=== PATIENT | born 1990 | race Caucasian/White ===

== ENCOUNTER 2018-08-17 08:49 | Outpatient (CLI) | payer OTHER ==
[2018-08-17] MEDS ORDERED: Gadobenate Dimeglumine 529 MG/1 ML (20ML VIAL) ONE (09:00)
--- NOTE | 2018-08-17 11:36 | MRI ---
[facility] Brain W WO Con: MRI IAC with and without contrast 08/17/2018 12:00 AM CLINICAL HISTORY: Dizziness. COMPARISON: None. FINDINGS: Extra axial spaces: Normal in size and morphology for the patient's age. Hemorrhage: None. Ventricular system: Normal in size and morphology for the patient's age. Basal cisterns: Normal. Cerebral parenchyma: Abnormal, small focal white matter signal alteration of the left wallis radiata. Midline shift: None. Cerebellum: Normal. Brainstem: Normal. Paranasal sinuses:Clear Internal auditory canal: No mass effect or pathologic enhancement. No pathologic enhancement or mass along either seventh/8th cranial nerve complex. Asymmetric signal at the right petrous apex could eit her relate to inspissated fluid within pneumatized air cells versus asymmetric marrow signal. Postcontrast imaging: No pathologic intra-axial enhancement. IMPRESSION:Solitary focus of signal alteration of the periventricular region, left wallis radiata. Gi kiera patient's age and location, a demyelinating plaque is the diagnosis of exclusion, as can be seen in the setting of multiple sclerosis. There is no associated pathologic enhancement. Correlate with C SF analysis for further evaluation. No abnormal enhancement or mass effect of either CP angle cistern.
== END 2018-08-17 08:50 | disposition home or self-care (01) ==
LOC: SCSMRI 08:49
PROVIDERS: ATTEND Otolaryngology Plastic Surgery within the Head & Neck
DX: R42 Dizziness and giddiness (principal)
CPT/HCPCS: 70553; A9577